=== PATIENT | female | born 1960 | race Caucasian/White ===

== ENCOUNTER 2017-07-12 16:57 | Emergency (ER) | payer OTHER ==
[~2017-07-12] VITALS: Ht 165.1 cm; Wt 77.0 kg
[2017-07-12] MEDS ORDERED: METOPROLOL TARTRATE 25MG TABLET PO ONE (18:15)
[2017-07-12 18:20] LABS: BASOPHILS % 1.3 % (0.0-2.0); EOSINOPHILS % 1.6 % (0.0-5.0); HEMATOCRIT. 38.1 % (36.0-48.0); HEMOGLOBIN. 13.1 g/dL (12.0-16.0); LYMPHOCYTES % 12.5 % (20.0-50.0); MEAN CORPUSCULAR HEMOGLOBIN 28.2 pg (28.0-32.0); MEAN CORPUSCULAR VOLUME 81.8 fL (81.0-99.0); MEAN PLATELET VOLUME 8.9 fl (7.4-10.4); MONOCYTES % 4.2 % (2.0-8.0); NEUTROPHILS % 80.4 % (40.0-76.0); PLATELET 219 x1000/uL (130-400); RED BLOOD CELL COUNT 4.65 mill/uL (4.2-5.4); RED CELL DISTRIBUTION WIDTH 15.6 % (11.6-14.6)
[2017-07-12 18:27] LABS: CHLORIDE 102 mEq/L (98-107); PROTHROMBIN TIME 10.4 sec (9.4-11.6)
[2017-07-12 18:30] LABS: ETHANOL BLOOD < 10 mg/dL
[2017-07-12 18:44] LABS: *AMPHETAMINES SCREEN URINE NEGATIVE (NEGATIVE); *BARBITURATES SCREEN URINE NEGATIVE (NEGATIVE); *BENZODIAZEPINES SCREEN URINE NEGATIVE (NEGATIVE); *COCAINE SCREEN URINE NEGATIVE (NEGATIVE); OPIATES URINE SCREEN NEGATIVE (NEGATIVE)
[2017-07-12 18:45] LABS: CANNABINOID URINE SCREEN NEGATIVE (NEGATIVE); METHADONE URINE SCREEN NEGATIVE (NEGATIVE); PHENCYCLIDINE URINE SCREEN NEGATIVE (NEGATIVE)
[2017-07-12 20:21] VITALS: BP 122/78
== END 2017-07-12 20:38 | disposition home or self-care (01) ==
LOC: ER 16:57
DX: I47.1 Supraventricular tachycardia (principal); I10 Essential (primary) hypertension
CPT/HCPCS: 36415; 80053; 80305; 84443; 84484; 85025; 85610; 93005; 99285; G0482